=== PATIENT | male | born 1950 | race Caucasian/White ===

== ENCOUNTER 2023-03-25 14:17 | Outpatient (CLI) | payer MEDICARE, SELFPAY | END 2023-03-25 14:18 | disposition home or self-care (01) | PROVIDERS: PCP Family Medicine; Visit Provider Family Medicine | DX: Z00.00 Encounter for general adult medical examination without abnormal findings (principal); R53.83 Other fatigue; R05.9 Cough, unspecified; R41.3 Other amnesia; R42 Dizziness and giddiness; Z12.5 Encounter for screening for malignant neoplasm of prostate | CPT/HCPCS: 80053; 82607; 83880; 84153; 84443 ==

== ENCOUNTER 2023-04-04 09:51 | Outpatient (CLI) | payer MEDICARE, SELFPAY ==
--- NOTE | 2023-04-04 10:00 | CT_ITS ---
Final Report Patient: THERESA MARLEY Facility:?[facility] Patient ID:?[id number] Patient ID:?[id number]. Site :?[id number] Study:?CT Chest WITHOUT-04/04/2023 12:00:14 PM Ordering Physician:Tara Duong Final Report: Indication: Shortness of breath. Technique: CT chest without IV contrast with multiplanar reformats. Does lowering techniques were used. Comparison: None Findings: Heart is normal in size. No pericardial or pleural effusion. No enlarged axillary or mediastinal lymph nodes. Evaluation of hilar lymphadenopathy is limited due to lack of IV contrast. Central airways are patent. Bilateral subpleural reticular opacities are seen with mild cystic changes/honeycombing in the lung bases. There is mild lower lobe predominant bronchiectasis. 1 centimeter low-density lesion in segment 2 of the liver, indeterminate. Otherwise, visualized noncontrast appearance of the liver, spleen, gallbladder, pancreas, adrenals and upper kidneys within normal limits. No suspicious bony lesion. 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 Indeterminate 1 centimeter segment 2 liver lesion. Consider nonemergent MRI abdomen with contrast for further evaluation. Please note that all CT scans at this facility use dose modulation, iterative reconstruction, and/or weight-based dosing when appropriate to reduce radiation dose to as low as reasonably achievable. Dictated by Lul Walton MD @ 04/04/2023 12:14:33 PM (Electronic Signature)
== END 2023-04-04 09:52 | disposition home or self-care (01) ==
PROVIDERS: PCP Family Medicine; Visit Provider Family Medicine
DX: R06.02 Shortness of breath (principal); K76.9 Liver disease, unspecified; R05.9 Cough, unspecified
CPT/HCPCS: 71250

== ENCOUNTER 2023-04-14 11:20 | Inpatient (IN) | payer MEDICARE, SELFPAY ==
[2023-04-14] VITALS (42 sets, daily range): BP systolic 138–173; BP diastolic 79–108; PULSE 85–115; RESP 24–45; TEMP 36.4–37.3; O2SAT 65–95; BMI 27.8; BMI 28.5
--- NOTE | 2023-04-14 11:30 | ED.NURSE ---
Pt arrives ambulatory, in triage room was ~64% on room air with labored tachypneic breathing. Pt brought to RM 8, placed on 15L O2 Oxymask. MD Melgar and RT summoned to room for exam. Pt O2 sats recovered to ~96% on 15L O2 after several minutes. O2 titrated down to 10L, then 5L. Pt maintaining O2 sats ~93% on 5L Oxymask.
[2023-04-14 11:52] LABS: Basophils Absolute Auto 0.02 K/uL (0.00-0.30); Basophils Percent Auto 0.3 % (0.0-3.0); Eosinophils Absolute Auto 0.19 K/uL (0.00-0.50); Hematocrit 40.9 % (37.0-53.0); Hemoglobin* 13.5 gm/dL (13.5-17.5); Immature Granulocytes Abs Auto 0.01 K/uL (0.00-0.30); Immature Granulocytes Pct Auto 0.2 %; Lymphocytes Percent Auto 9.2 % (20-44); Mean Corpuscular HGB Conc 33 gm/dL (32-36); Mean Corpuscular Hemoglobin 31 pg (26-34); Mean Corpuscular Volume 94 fL (80-100); Monocytes Percent Auto 5.8 % (0.0-11.0); Neutrophils Percent Auto 81.5 % (42.0-72.0); Platelet Count* 239 K/uL (140-440); RDW Coefficient of Variation % 12.6 % (11.5-15.5); Red Blood Count 4.35 m/uL (4.30-5.90); White Blood Count* 6.39 K/uL (4.50-11.00)
[2023-04-14 11:54] LABS: Slide Review Reflex No
[2023-04-14 12:04] LABS: Chloride* 107 mmol/L (96-114); Potassium* 4.3 mmol/L (3.6-5.1); Sodium* 142 mmol/L (135-149)
--- NOTE | 2023-04-14 12:06 | ED.NURSE ---
Pt maintaining O2 sats ~94% on 5L oxymask. Pt switched to NC, titrated down to 3L O2.
[2023-04-14 12:07] LABS: Anion Gap 11 mEq/L (7-15); Blood Urea Nitrogen* 14 mg/dL (7-30); Calcium* 9.9 mg/dL (8.4-10.6); Carbon Dioxide* 24 mmol/L (20-32); Creatinine* 0.7 mg/dL (0.5-1.5); Estimated Glomerular Filt Rate 97 ml/min; Glucose* 152 mg/dL (60-115)
[2023-04-14 12:08] LABS: D Dimer Quantitative* 1.74 ug/ml (0.00-0.50)
[2023-04-14 12:17] LABS: NT Pro B Type NatriureticPept* 1230 pg/mL
[2023-04-14 12:18] LABS: Troponin, Point-of-Care* 0.05 ng/ml (0.01-0.04)
--- NOTE | 2023-04-14 12:20 | ED.NURSE ---
RT titrated pt down to 1L O2 NC.
[2023-04-14 12:26] LABS: ABG PCO2 32 mmHG (35-45); Base Excess ABG -1.6 mmol/L (-3.0-3.0); Carboxyhemoglobin* 2.4 % (0.0-5.0); HCO3 ABG 22 mmol/L (21-28); Oxygen Saturation ABG 92 % (92-100); PO2 ABG 59.8 mmHG (80-105); TCO2 ABG 20 mmol/l (21-30); pH ABG 7.45 (7.35-7.45)
--- NOTE | 2023-04-14 12:47 | ED.NURSE ---
Pt O2 sats ~84%. Titrated O2 up to 2L NC.
--- NOTE | 2023-04-14 12:55 | ED.NURSE ---
Pt O2 continuing to sat ~86% on 2L NC while at rest. O2 titrated up to 3L NC.
--- NOTE | 2023-04-14 12:59 | CRLHL7_ITS ---
For Patients: As a result of the Century Cures Act, medical imaging exams and procedure reports are released immediately into your electronic medical record. You may view this report before your referring provider. If you have questions, please contact your health care provider. INDICATION: Elevated D-dimer. Clinical signs and symptoms of an acute pulmonary embolus. COMPARISON: A noncontrast examination dated April 04, 2023 TECHNIQUE: : CT examination of the chest was performed with the uneventful intravenous administration of 95 cc of his severe 3 set while thin axial sections were obtained from above the apices of the lungs to the lung bases. Please note that all CT scans at this facility use dose modulation, iterative reconstruction, and/or weight-based dosing when appropriate to reduce radiation dose to as low as reasonably achievable. FINDINGS: : HEART and MEDIASTINUM: The heart is enlarged. There is no pericardial effusion. Mildly prominent mediastinal lymph nodes likely reactive. Atherosclerotic vascular calcifications and valvular calcifications. Enlarged pulmonary arteries probably due to pulmonary hypertension PULMONARY ARTERIAL CIRCULATION: Somewhat limited by motion but no indication of acute pulmonary embolus. LUNGS: Compared to the prior study, the lungs again show a background of significant interstitial fibrosis. This has a peripheral and basilar predominance and presents with abnormal reticular opacities and areas of traction bronchiectasis and bronchiolectasis. There is early honeycombing at the posterior bases. 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 A new finding since the prior examination is diffuse multifocal ground-glass. This is most likely due to an atypical inflammatory process or edema. Correlate clinically. PLEURAL SPACES: There is no pleural effusion, pneumothorax or pleural based mass. VISUALIZED UPPER ABDOMEN: Indeterminate hepatic lesion in the left lobe for which follow-up is recommended in the nonacute care setting. OSSEOUS STRUCTURES: Age-appropriate appearance. No acute fracture or destructive process. TUBES and LINES: None. IMPRESSION: 1. Somewhat limited by motion but there is no indication of acute pulmonary embolus. 2. Enlarged heart. Prominent mediastinal lymph nodes likely reactive. Enlarged central pulmonary arteries likely due to pulmonary hypertension. 3. Background of significant interstitial fibrosis as described above and was also present on April 04, 2023. 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 4. There is a new finding of significant diffuse patchy multifocal ground-glass opacification. The 2 most likely diagnoses are an atypical inflammatory process or edema. Correlate clinically. Normal pleural spaces. 5. Again noted is a small indeterminate lesion in the left lobe of the liver. This would best be evaluated by a contrast-enhanced CT or MRI. Please note that all CT scans at this facility use dose modulation, iterative reconstruction, and/or weight-based dosing when appropriate to reduce radiation dose to as low as reasonably achievable. Dictated by Riccardo Gotti MD @ 04/14/2023 3:08:12 PM (Electronically Signed)
--- NOTE | 2023-04-14 13:06 | ED.NURSE ---
O2 sats ~94% on 3L NC. Titrated down to 2L O2.
[2023-04-14 13:16] LABS: Troponin I* 0.05 ng/mL (0.01-0.04)
--- NOTE | 2023-04-14 13:35 | ED.NURSE ---
Pt O2 satting around 86% on 2L upon return from imaging. O2 titrated up to 4L NC.
--- NOTE | 2023-04-14 14:00 | ED.NURSE ---
Pt O2 sats ~93% on 4L. O2 titrated down to 2L.
[2023-04-14 14:01] LABS: PCR FLU A Negative PCR FLU A (Negative); PCR FLU B Negative PCR FLU B (Negative); PCR RSV Negative PCR RSV (Negative)
[2023-04-14 14:15] LABS: SARS PCR* Negative SARS-CoV-2 (Negative)
--- NOTE | 2023-04-14 14:22 | ED.NURSE ---
Pt brought to restroom in wheelchair. Upon return to bed, pt desatted to ~70% after exertion of getting into bed. O2 titrated up to 4L until pt O2 recovered to ~92% after a few minutes, then titrated back down to 2L.
--- NOTE | 2023-04-14 14:29 | RESP.RT ---
Patient is currently on 2L NC SATing 92%. He desaturated into the low 80s with activity. Patient states that he just started taking Combivent and is scheduled for a sleep study.
[2023-04-14 14:33] LABS: Troponin, Point-of-Care* 0.06 ng/ml (0.01-0.04)
--- NOTE | 2023-04-14 14:33 | ED.NURSE ---
Pt c/o onset of headache, posterior head pain rates /. Pt requesting ibuprofen. MD notified, verbal order for 600mg ibuprofen, med given to pt.
[2023-04-14] MEDS: IBUPROFEN 200 MG TABLET 600 MG PO (14:35)
[2023-04-14 14:53] LABS: Troponin I* 0.06 ng/mL (0.01-0.04)
--- NOTE | 2023-04-14 15:28 | ED_ITS ---
HPI - SOB/Dyspnea General Chief Complaint: Shortness of Breath/Dyspnea Stated Complaint: chest pain/trouble breathing 05/24 Time Seen by Provider: 04/14/23 11:28 History of Present Illness HPI Narrative: Patient is a 72-year-old gentleman who has had progressive shortness of breath the last several months. He recently established with Dr. Heath who did a chest x-ray noting diffuse airway changes consistent with bronchiolitis. She was placed on necrosis of cortical steroids and CT scan was ordered. The CT scan was done 10 days ago and has not been followed up upon. The CT showed diffuse likely idiopathic pulmonary fibrosis. Patient's shortness of breath has been persisting and he presented to the emergency room with oxygen saturations 65% extremely tachypneic. Patient had no knowledge of his CT findings. He states he has had no cough no sputum production no nausea no vomiting no weakness. He has otherwise been in his usual state of health. Review of his medical record indicates he has cognitive impairment carotid stenosis GERD obstructive sleep apnea and fatigue. Related Data Home Medications Medication Instructions Recorded Confirmed ibuprofen 200 mg capsule 600 mg PO Q6H PRN 03/25/23 04/14/23 Previous Rx's Medication Instructions Recorded ipratropium 20 mcg-albuterol 100 1 puff inhalation QID #4 grams 03/25/23 mcg/actuation mist for inhalation (Combivent Respimat) prednisone 20 mg tablet 20 mg PO .COMPLEX #20 tabs 03/25/23 Allergies Allergy/AdvReac Type Severity Reaction Status Date / Time No Known Drug Allergies Allergy Verified 04/14/23 11:37 Review of Systems Status of ROS: Reports: 10 or more systems reviewed and unremarkable except as noted in History and below [facility] Medical History Pulmonary fibrosis ?J84.10 - Pulmonary fibrosis, unspecified (ICD-10) Injury of nasal sinus ?S09.92XA - Unspecified injury of nose, initial encounter (ICD-10) Arthritis of knee ?M17.10 - Unilateral primary osteoarthritis, unspecified knee (ICD-10) Hx of urinary frequency ?Z87.898 - Personal history of other specified conditions (ICD-10) Change in bowel habits ?R19.4 - Change in bowel habit (ICD-10) Hyperlipidemia ?E78.5 - Hyperlipidemia, unspecified (ICD-10) Hx of syncope ?Z87.898 - Personal history of other specified conditions (ICD-10) Carotid artery narrowing ?I65.29 - Occlusion and stenosis of unspecified carotid artery (ICD-10) GERD (gastroesophageal reflux disease) ?K21.9 - Gastro-esophageal reflux disease without esophagitis (ICD-10) DAVIS (obstructive sleep apnea) ?G47.33 - Obstructive sleep apnea (adult) (pediatric) (ICD-10) Lung interstitial disease ?J84.9 - Interstitial pulmonary disease, unspecified (ICD-10) Cough ?R05.9 - Cough, unspecified (ICD-10) Surgical History H/O sinus surgery ?Z98.890 - Other specified postprocedural states (ICD-10) Hx of total knee arthroplasty ?Z96.659 - Presence of unspecified artificial knee joint (ICD-10) History of arthroplasty of left shoulder ?Z96.612 - Presence of left artificial shoulder joint (ICD-10) Family History Father Stroke Mother Myocardial infarction Diabetes Coronary artery disease Brother Sudden Sister Stroke Diabetes Brother Coronary artery disease Myocardial infarction Social History Smoking Status: Former smoker How often do you have a drink containing alcohol: 4 or more times a week How many standard drinks containing alcohol do you have on a typical day: 1 or 2 How often do you have six or more drinks on one occasion: Never AUDIT-C Alcohol total score: 4 Non-prescribed substance use: denies use Exam Narrative: Exam Narrative: EXAM after the patient was stabilized with high-flow oxygen GENERAL: Patient appears comfortable and well. Breathing oxygen at 3 L per nasal cannula. EYES: No scleral icterus. LYMPH: No supraclavicular or cervical lymphadenopathy. SKIN: Visible skin seen during exam normal or with benign process only. EXT: No dependent lower extremity pedal edema. HEART: Distant heart tones noted. LUNGS: Scattered crackles bilaterally. ABD: Soft, non tender, non distended. PSYCH: Good eye contact, speech is not pressured. Neurologic cranial nerves 2-12 grossly intact. Const: Vital Signs, click to edit/add: Vital Signs - 24 hr 04/14/23 11:30 04/14/23 11:30 04/14/23 11:32 Temperature 97.6 F Pulse Rate Pulse Rate [Bilate ral] 97 Respiratory Rate 24 Blood Pressure Blood Pressure [Le ft Upper Arm] 165/83 H Pulse Oximetry 94 94 65 L Oxygen Delivery Me thod OxyMask Room Air Oxygen Flow Rate 15 Fraction of Inspir ed Oxygen 04/14/23 11:38 04/14/23 11:43 04/14/23 11:45 Temperature Pulse Rate 97 Pulse Rate [Bilate ral] Respiratory Rate 40 H Blood Pressure Blood Pressure [Le ft Upper Arm] Pulse Oximetry 94 92 Oxygen Delivery Me thod OxyMask OxyMask Oxygen Flow Rate 4 5 Fraction of Inspir ed Oxygen 04/14/23 11:45 04/14/23 12:01 04/14/23 12:02 Temperature Pulse Rate 100 98 100 Pulse Rate [Bilate ral] Respiratory Rate Blood Pressure 144/88 H Blood Pressure [Le ft Upper Arm] Pulse Oximetry 94 94 91 Oxygen Delivery Me thod OxyMask Nasal Cannula Nasal Cannula Oxygen Flow Rate 5 3 3 Fraction of Inspir ed Oxygen 04/14/23 12:15 04/14/23 12:15 04/14/23 12:30 Temperature Pulse Rate 98 96 Pulse Rate [Bilate ral] Respiratory Rate 45 H Blood Pressure Blood Pressure [Le ft Upper Arm] Pulse Oximetry 91 89 Oxygen Delivery Me thod Nasal Cannula Nasal Cannula Oxygen Flow Rate 3 1 Fraction of Inspir ed Oxygen 04/14/23 12:30 04/14/23 12:32 04/14/23 12:33 Temperature Pulse Rate 91 91 Pulse Rate [Bilate ral] Respiratory Rate 35 H Blood Pressure 138/85 Blood Pressure [Le ft Upper Arm] Pulse Oximetry 89 89 Oxygen Delivery Me thod Nasal Cannula Nasal Cannula Oxygen Flow Rate 1 1 Fraction of Inspir ed Oxygen 04/14/23 12:35 04/14/23 12:45 04/14/23 12:45 Temperature Pulse Rate 93 Pulse Rate [Bilate ral] Respiratory Rate 40 H Blood Pressure Blood Pressure [Le ft Upper Arm] Pulse Oximetry 88 Oxygen Delivery Me thod Nasal Cannula Nasal Cannula Oxygen Flow Rate 1 Fraction of Inspir ed Oxygen 0.24 04/14/23 13:00 04/14/23 13:01 04/14/23 13:02 Temperature Pulse Rate 89 89 90 Pulse Rate [Bilate ral] Respiratory Rate Blood Pressure 147/92 H Blood Pressure [Le ft Upper Arm] Pulse Oximetry 93 93 92 Oxygen Delivery Me thod Nasal Cannula Nasal Cannula Nasal Cannula Oxygen Flow Rate 3 3 2 Fraction of Inspir ed Oxygen 04/14/23 13:10 04/14/23 13:31 04/14/23 13:33 Temperature Pulse Rate 107 H 99 Pulse Rate [Bilate ral] Respiratory Rate 40 H Blood Pressure 147/82 H Blood Pressure [Le ft Upper Arm] Pulse Oximetry 86 L 87 L Oxygen Delivery Me thod Nasal Cannula Nasal Cannula Oxygen Flow Rate 2 4 Fraction of Inspir ed Oxygen 04/14/23 13:45 04/14/23 14:00 04/14/23 14:02 Temperature Pulse Rate 90 93 91 Pulse Rate [Bilate ral] Respiratory Rate Blood Pressure 151/87 H Blood Pressure [Le ft Upper Arm] Pulse Oximetry 92 90 90 Oxygen Delivery Me thod Nasal Cannula Nasal Cannula Nasal Cannula Oxygen Flow Rate 4 2 2 Fraction of Inspir ed Oxygen 04/14/23 14:03 04/14/23 14:07 04/14/23 14:18 Temperature Pulse Rate 91 115 H Pulse Rate [Bilate ral] Respiratory Rate 40 H Blood Pressure Blood Pressure [Le ft Upper Arm] Pulse Oximetry 90 69 L Oxygen Delivery Me thod Nasal Cannula Nasal Cannula Oxygen Flow Rate 2 4 Fraction of Inspir ed Oxygen 04/14/23 14:30 04/14/23 14:33 04/14/23 14:34 Temperature Pulse Rate 92 92 92 Pulse Rate [Bilate ral] Respiratory Rate Blood Pressure 140/84 H Blood Pressure [Le ft Upper Arm] Pulse Oximetry 89 90 89 Oxygen Delivery Me thod Nasal Cannula Nasal Cannula Nasal Cannula Oxygen Flow Rate 2 2 2 Fraction of Inspir ed Oxygen 04/14/23 14:45 04/14/23 15:00 04/14/23 15:01 Temperature Pulse Rate 93 91 85 Pulse Rate [Bilate ral] Respiratory Rate Blood Pressure 150/93 H Blood Pressure [Le ft Upper Arm] Pulse Oximetry 91 91 91 Oxygen Delivery Me thod Nasal Cannula Nasal Cannula Nasal Cannula Oxygen Flow Rate 2 2 2 Fraction of Inspir ed Oxygen 04/14/23 15:02 Temperature Pulse Rate Pulse Rate [Bilate ral] Respiratory Rate 40 H Blood Pressure Blood Pressure [Le ft Upper Arm] Pulse Oximetry Oxygen Delivery Me thod Oxygen Flow Rate Fraction of Inspir ed Oxygen Course Course Hospital Course: Patient was initially stabilized on a high-flow oxygen. I did review his previous chest x-ray and CT scan is clear that he has a pulmonary fibrosis causing his symptoms. This point I did send off CBC troponin which is mildly elevated at 0.06 D-dimer which is elevated and electrolytes. Because of the elevated D-dimer we did do a CT of the chest PE study and no PEs seen. Pulmonary fibrosis is noted with new ground-glass opacification. There is also evidence of possible pulmonary hypertension. Based on his clinical presentation and need for 3 L of oxygen patient will be admitted for further evaluation and treatment. I did again speak with Cardiology and they did recommend no change in medical management unless the troponin trends up. Consultations Consultation #1: Cardiology Poli Hendrickson Vital Signs Vital signs: Initial Vital Signs Respiratory Effort Spontaneous, Labored, Short of Breath 04/14/23 11:30 Respiratory Depth Shallow 04/14/23 11:30 Respiratory Pattern Tachypnea, Short of Breath 04/14/23 11:30 Pulse Oximetry 94 04/14/23 11:30 Oxygen Delivery Method OxyMask 04/14/23 11:30 Oxygen Flow Rate 15 04/14/23 11:30 Vital Signs Pulse Oximetry 94 04/14/23 11:30 Oxygen Delivery Method OxyMask 04/14/23 11:30 Oxygen Flow Rate 15 04/14/23 11:30 Temperature 97.6 F 04/14/23 11:32 Pulse Rate 85 04/14/23 15:01 Respiratory Rate 40 H 04/14/23 15:02 Blood Pressure 150/93 H 04/14/23 15:01 Pulse Oximetry 91 04/14/23 15:01 Oxygen Delivery Method Nasal Cannula 04/14/23 15:01 Oxygen Flow Rate 2 04/14/23 15:01 Fraction of Inspired Oxygen 0.24 04/14/23 12:35 MDM - SOB/Dyspnea MDM Narrative Medical decision making narrative: As above in hospital course. Differential diagnosis included pneumonia pulmonary embolism pulmonary fibrosis pleural effusion congestive heart failure. Lab Data Labs: Lab Results 04/14/23 04/14/23 04/14/23 Range/Units 11:30 12:20 13:05 WBC 6.39 (4.50-11.00) K/uL RBC 4.35 (4.30-5.90) m/uL Hgb 13.5 (13.5-17.5) gm/dL Hct 40.9 (37.0-53.0) % MCV 94 (80-100) fL MCH 31 (26-34) pg MCHC 33 (32-36) gm/dL RDW Coeff of Robert 12.6 (11.5-15.5) % Plt Count 239 (140-440) K/uL Neut % (Auto) 81.5 H (42.0-72.0) % Lymph % (Auto) 9.2 L (20-44) % [place] % (Auto) 5.8 (0.0-11.0) % Eos % (Auto) 3.0 (0.0-7.0) % Baso % (Auto) 0.3 (0.0-3.0) % Neut # (Auto) 5.20 (1.7-7.0) K/uL Lymph # (Auto) 0.60 L (0.90-2.90) K/uL [place] # (Auto) 0.40 (0.00-0.90) K/UL Eos # (Auto) 0.19 (0.00-0.50) K/uL Baso # (Auto) 0.02 (0.00-0.30) K/uL Abs Immat Gran (auto) 0.01 (0.00-0.30) K/uL Imm/Tot Granulo (auto) 0.2 % D-Dimer Quant (PE/DVT) 1.74 H (0.00-0.50) ug/ml ABG pH 7.45 (7.35-7.45) ABG pCO2 32 L (35-45) mmHG ABG pO2 59.8 L (80-105) mmHG ABG HCO3 22 (21-28) mmol/L ABG Total CO2 20 L (21-30) mmol/l ABG O2 Saturation 92 (92-100) % ABG Base Excess -1.6 (-3.0-3.0) mmol/L Carboxyhemoglobin 2.4 (0.0-5.0) % Sodium 142 (135-149) mmol/L Potassium 4.3 (3.6-5.1) mmol/L Chloride 107 (96-114) mmol/L Carbon Dioxide 24 (20-32) mmol/L Anion Gap 11 (7-15) mEq/L BUN 14 (7-30) mg/dL Creatinine 0.7 (0.5-1.5) mg/dL Estimated Creat Clear 62.70 Estimated GFR 97 ml/min Glucose 152 H (60-115) mg/dL Calcium 9.9 (8.4-10.6) mg/dL Troponin I 0.05 H (0.01-0.04) ng/mL NT-Pro-B Natriuret Pep 1230 pg/mL SARS-CoV-2 (PCR) Negative SARS-CoV-2 (Negative) Influenza Type A (PCR) Negative PCR FLU A (Negative) Influenza Type B (PCR) Negative PCR FLU B (Negative) RSV (PCR) Negative PCR RSV (Negative) POC Troponin I 0.05 H (0.01-0.04) ng/ml 04/14/23 Range/Units 14:04 WBC (4.50-11.00) K/uL RBC (4.30-5.90) m/uL Hgb (13.5-17.5) gm/dL Hct (37.0-53.0) % MCV (80-100) fL MCH (26-34) pg MCHC (32-36) gm/dL RDW Coeff of Robert (11.5-15.5) % Plt Count (140-440) K/uL Neut % (Auto) (42.0-72.0) % Lymph % (Auto) (20-44) % [place] % (Auto) (0.0-11.0) % Eos % (Auto) (0.0-7.0) % Baso % (Auto) (0.0-3.0) % Neut # (Auto) (1.7-7.0) K/uL Lymph # (Auto) (0.90-2.90) K/uL [place] # (Auto) (0.00-0.90) K/UL Eos # (Auto) (0.00-0.50) K/uL Baso # (Auto) (0.00-0.30) K/uL Abs Immat Gran (auto) (0.00-0.30) K/uL Imm/Tot Granulo (auto) % D-Dimer Quant (PE/DVT) (0.00-0.50) ug/ml ABG pH (7.35-7.45) ABG pCO2 (35-45) mmHG ABG pO2 (80-105) mmHG ABG HCO3 (21-28) mmol/L ABG Total CO2 (21-30) mmol/l ABG O2 Saturation (92-100) % ABG Base Excess (-3.0-3.0) mmol/L Carboxyhemoglobin (0.0-5.0) % Sodium (135-149) mmol/L Potassium (3.6-5.1) mmol/L Chloride (96-114) mmol/L Carbon Dioxide (20-32) mmol/L Anion Gap (7-15) mEq/L BUN (7-30) mg/dL Creatinine (0.5-1.5) mg/dL Estimated Creat Clear Estimated GFR ml/min Glucose (60-115) mg/dL Calcium (8.4-10.6) mg/dL Troponin I 0.06 H* (0.01-0.04) ng/mL NT-Pro-B Natriuret Pep pg/mL SARS-CoV-2 (PCR) (Negative) Influenza Type A (PCR) (Negative) Influenza Type B (PCR) (Negative) RSV (PCR) (Negative) POC Troponin I 0.06 H (0.01-0.04) ng/ml Discharge Plan Discharge Clinical Impression: Pulmonary fibrosis Patient Disposition: Admitted As Observation Condition: Stable Activity Level: Other Discharge Diet: Other Prescriptions: No Action ibuprofen 200 mg capsule 600 mg PO Q6H PRN Combivent Respimat 20-100 mcg/actuation mist 1 puff inhalation QID Qty: 4 1RF Rx Instructions: space evenly during waking hours prednisone 20 mg tablet 20 mg PO .COMPLEX Qty: 20 0RF Rx Instructions: 20 mg orally; 60 MG PO DAYS 1 -3, 40 MG DAYS 4-6, 20 MG DAYS 7-9 Follow Up/Referrals: Ad Heath MD [Primary Care Provider] - Stand Alone [facility] Info Inst[facility]
--- NOTE | 2023-04-14 15:30 | ED.NURSE ---
Pt repositioned in bed for comfort.
--- NOTE | 2023-04-14 18:00 | PM.IMHP1 ---
Hospitalist- H&P: HPI History of Present Illness Date Seen: 04/14/23 Chief complaint: chest pain/trouble breathing 05/24 Narrative: ADMISSION HISTORY AND PHYSICAL - HOSPITALIST Chief Complaint: I am super short of breath. I have not rested all night. I can not find a comfortable position. HPI: 72-year-old Juancho presents with acute respiratory distress. He stated late afternoon yesterday, 04/13/2023, started to feel even more short of breath than his normal baseline. He said he could not find a comfortable position last night. He felt mildly anxious, he was coughing. He denies fevers rigors or chills. He denies diarrhea. Denies rash. He denies sick contacts. Apparently there was a longstanding history of pulmonary fibrosis for which he doctor at the [facility] from about 2016 to 2020. Unfortunately those records are unavailable for me to review at this time. He states they told him there was nothing to do and he stopped doctoring for a couple of years before re-engage in with Dr. Ad Heath here in the [place] system. He just recently had a physical with this physician. Chest x-ray revealed some concerns so Ad ordered a chest CT. This showed markedly severe interstitial lung disease and Ad referred Juancho to pulmonary medicine in the [facility]. He has a sleep study and a clinic appointment in the coming weeks. He takes no medications. Robson started him on Levaquin, Mucinex, prednisone. He apparently has a history of DAVIS that was not treated with CPAP, GERD. ER COURSE: CTA done tonight is compared to the CT of his chest done a few days ago. There is new ground-glass opacities noted. He was hypoxic and titrated from an OxyMask down to 2-3 L per nasal cannula. Labs were also completed. CODE STATUS: Full code EMERGENCY CONTACT PLAN: Marj Rojas Rel to Pat [phone] Cell Phone I've updated the PFSH, medications and allergies in the Expanse tabs. INVESTIGATIONS: LABS/MICRO/ECG/IMAGING Blood pressure 151/89. Pulse 89. Respirations 30-40. Temp 99.1?. O2 sats 90% on 2.5 L per nasal cannula. Weight is 84.9 kilos, BMI is 28.5 CBC is reassuring tonight in the emergency room. No white blood cell count. Hemoglobin normal. Platelet count normal. D-dimer was elevated at 1.74 Blood gas revealed a normal pH. A lower than expected CO2 at 32. electrolytes very reassuring. Normal renal function. Normal electrolytes. Glucose 152. He does have an elevated troponin, mildly, 0.05 and 0.06 Triple respiratory nasal swab negative. CT chest with contrast (CTA) 1. Somewhat limited by motion but there is no indication of acute pulmonary embolus. 2. Enlarged heart. Prominent mediastinal lymph nodes likely reactive. Enlarged central pulmonary arteries likely due to pulmonary hypertension. 3. Background of significant interstitial fibrosis as described above and was also present on April 04, 2023. 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 4. There is a new finding of significant diffuse patchy multifocal ground-glass opacification. The 2 most likely diagnoses are an atypical inflammatory process or edema. Correlate clinically. Normal pleural spaces. 5. Again noted is a small indeterminate lesion in the left lobe of the liver. This would best be evaluated by a contrast-enhanced CT or MRI. Echo done at admission: Final Impressions: 1. Technically limited exam. 2. Normal left ventricular size, normal wall thickness, low normal global systolic function, calculated EF of 54 %. 3. Right ventricular cavity size is moderately enlarged, global systolic RV function is moderately reduced. 4. The aortic valve is trileaflet and sclerotic, no stenosis and mild regurgitation. 5. Mildly increased estimated pulmonary pressures by tricuspid regurgitation velocity and right atrial pressure (40 mmHg plus RAP which is estimated to be low normal based on IVC geometry). REVIEW OF SYSTEMS: 12-point ROS completed with patient and negative unless otherwise stated in HPI or below. PHYSICAL EXAM: CONSTITUTIONAL: Conversive, good historian. A/O. Knows setting and context. He appears mildly breathless, especially with any exertion. VITAL SIGNS: see record. HEENT: Normocephalic, atraumatic. PERRL, EOMI, conjunctivae pink, no scleral icterus. Ears and nose externally normal. Pharynx normal. NECK: No JVD. No carotid bruit, no thyromegaly, no adenopathy. CHEST: Crackles bilaterally throughout the lung cervantes HEART: S1 and S2 normal. No harsh murmurs. Edema minimal MUSCULOSKELETAL: No gross joint deformity or swelling. NEURO: Cranial nerves intact. Grossly intact. No asymmetric findings. SKIN: No rashes, petechiae, concerning changes PSYCHIATRIC: Euthymic. ADMIT TO MEDSURG: FLOOR CARE DVT: Lovenox GI: PO intake Time spent: Today I spent 75 minutes seeing the patient, discussing the patient with ER staff, reviewing Expanse and EPIC notes/diagnostics, discussing the care plan with our care time that includes social work, PT/OT, pharmacy, RT, mcc and documenting my impressions and plan in the medical record. [facility] Medical History (Updated 04/14/23 @ 18:53 by Anahy Jim MD) Injury of nasal sinus ?S09.92XA - Unspecified injury of nose, initial encounter (ICD-10) Arthritis of knee ?M17.10 - Unilateral primary osteoarthritis, unspecified knee (ICD-10) Change in bowel habits ?R19.4 - Change in bowel habit (ICD-10) Hyperlipidemia ?E78.5 - Hyperlipidemia, unspecified (ICD-10) Hx of syncope ?Z87.898 - Personal history of other specified conditions (ICD-10) Carotid artery narrowing ?I65.29 - Occlusion and stenosis of unspecified carotid artery (ICD-10) GERD (gastroesophageal reflux disease) ?K21.9 - Gastro-esophageal reflux disease without esophagitis (ICD-10) DAVIS (obstructive sleep apnea) ?G47.33 - Obstructive sleep apnea (adult) (pediatric) (ICD-10) Surgical History (Updated 04/14/23 @ 18:40 by Anahy Jim MD) Hx of total knee arthroplasty ?Z96.659 - Presence of unspecified artificial knee joint (ICD-10) History of arthroplasty of left shoulder ?Z96.612 - Presence of left artificial shoulder joint (ICD-10) Family History Father Stroke Mother Myocardial infarction Diabetes Coronary artery disease Brother Sudden Sister Stroke Diabetes Brother Coronary artery disease Myocardial infarction Social History Smoking Status: Former smoker How often do you have a drink containing alcohol: 4 or more times a week How many standard drinks containing alcohol do you have on a typical day: 1 or 2 How often do you have six or more drinks on one occasion: Never AUDIT-C Alcohol total score: 4 Non-prescribed substance use: denies use Meds Home Medications and Allergies Home Medications Medication Instructions Recorded Confirmed Type ibuprofen 200 mg capsule 600 mg PO Q6H PRN 03/25/23 04/14/23 History Allergies Allergy/AdvReac Type Severity Reaction Status Date / Time No Known Drug Allergies Allergy Verified 04/14/23 11:37 Exam Const: Vital Signs, click to edit/add: Vital Signs - 24 hr 04/14/23 11:30 04/14/23 11:30 04/14/23 11:32 Temperature 97.6 F Pulse Rate Pulse Rate [Bilate ral] 97 Respiratory Rate 24 Blood Pressure Blood Pressure [Le ft Upper Arm] 165/83 H Pulse Oximetry 94 94 65 L Oxygen Delivery Me thod OxyMask Room Air Oxygen Flow Rate 15 Fraction of Inspir ed Oxygen 04/14/23 11:38 04/14/23 11:43 04/14/23 11:45 Temperature Pulse Rate 97 Pulse Rate [Bilate ral] Respiratory Rate 40 H Blood Pressure Blood Pressure [Le ft Upper Arm] Pulse Oximetry 94 92 Oxygen Delivery Me thod OxyMask OxyMask Oxygen Flow Rate 4 5 Fraction of Inspir ed Oxygen 04/14/23 11:45 04/14/23 12:01 04/14/23 12:02 Temperature Pulse Rate 100 98 100 Pulse Rate [Bilate ral] Respiratory Rate Blood Pressure 144/88 H Blood Pressure [Le ft Upper Arm] Pulse Oximetry 94 94 91 Oxygen Delivery Me thod OxyMask Nasal Cannula Nasal Cannula Oxygen Flow Rate 5 3 3 Fraction of Inspir ed Oxygen 04/14/23 12:15 04/14/23 12:15 04/14/23 12:30 Temperature Pulse Rate 98 96 Pulse Rate [Bilate ral] Respiratory Rate 45 H Blood Pressure Blood Pressure [Le ft Upper Arm] Pulse Oximetry 91 89 Oxygen Delivery Me thod Nasal Cannula Nasal Cannula Oxygen Flow Rate 3 1 Fraction of Inspir ed Oxygen 04/14/23 12:30 04/14/23 12:32 04/14/23 12:33 Temperature Pulse Rate 91 91 Pulse Rate [Bilate ral] Respiratory Rate 35 H Blood Pressure 138/85 Blood Pressure [Le ft Upper Arm] Pulse Oximetry 89 89 Oxygen Delivery Me thod Nasal Cannula Nasal Cannula Oxygen Flow Rate 1 1 Fraction of Inspir ed Oxygen 04/14/23 12:35 04/14/23 12:45 04/14/23 12:45 Temperature Pulse Rate 93 Pulse Rate [Bilate ral] Respiratory Rate 40 H Blood Pressure Blood Pressure [Le ft Upper Arm] Pulse Oximetry 88 Oxygen Delivery Me thod Nasal Cannula Nasal Cannula Oxygen Flow Rate 1 Fraction of Inspir ed Oxygen 0.24 04/14/23 13:00 04/14/23 13:01 04/14/23 13:02 Temperature Pulse Rate 89 89 90 Pulse Rate [Bilate ral] Respiratory Rate Blood Pressure 147/92 H Blood Pressure [Le ft Upper Arm] Pulse Oximetry 93 93 92 Oxygen Delivery Me thod Nasal Cannula Nasal Cannula Nasal Cannula Oxygen Flow Rate 3 3 2 Fraction of Inspir ed Oxygen 04/14/23 13:10 04/14/23 13:31 04/14/23 13:33 Temperature Pulse Rate 107 H 99 Pulse Rate [Bilate ral] Respiratory Rate 40 H Blood Pressure 147/82 H Blood Pressure [Le ft Upper Arm] Pulse Oximetry 86 L 87 L Oxygen Delivery Me thod Nasal Cannula Nasal Cannula Oxygen Flow Rate 2 4 Fraction of Inspir ed Oxygen 04/14/23 13:45 04/14/23 14:00 04/14/23 14:02 Temperature Pulse Rate 90 93 91 Pulse Rate [Bilate ral] Respiratory Rate Blood Pressure 151/87 H Blood Pressure [Le ft Upper Arm] Pulse Oximetry 92 90 90 Oxygen Delivery Me thod Nasal Cannula Nasal Cannula Nasal Cannula Oxygen Flow Rate 4 2 2 Fraction of Inspir ed Oxygen 04/14/23 14:03 04/14/23 14:07 04/14/23 14:18 Temperature Pulse Rate 91 115 H Pulse Rate [Bilate ral] Respiratory Rate 40 H Blood Pressure Blood Pressure [Le ft Upper Arm] Pulse Oximetry 90 69 L Oxygen Delivery Me thod Nasal Cannula Nasal Cannula Oxygen Flow Rate 2 4 Fraction of Inspir ed Oxygen 04/14/23 14:30 04/14/23 14:33 04/14/23 14:34 Temperature Pulse Rate 92 92 92 Pulse Rate [Bilate ral] Respiratory Rate Blood Pressure 140/84 H Blood Pressure [Le ft Upper Arm] Pulse Oximetry 89 90 89 Oxygen Delivery Me thod Nasal Cannula Nasal Cannula Nasal Cannula Oxygen Flow Rate 2 2 2 Fraction of Inspir ed Oxygen 04/14/23 14:45 04/14/23 15:00 04/14/23 15:01 Temperature Pulse Rate 93 91 85 Pulse Rate [Bilate ral] Respiratory Rate Blood Pressure 150/93 H Blood Pressure [Le ft Upper Arm] Pulse Oximetry 91 91 91 Oxygen Delivery Me thod Nasal Cannula Nasal Cannula Nasal Cannula Oxygen Flow Rate 2 2 2 Fraction of Inspir ed Oxygen 04/14/23 15:02 04/14/23 15:02 04/14/23 15:15 Temperature Pulse Rate 93 94 Pulse Rate [Bilate ral] Respiratory Rate 40 H Blood Pressure Blood Pressure [Le ft Upper Arm] Pulse Oximetry 92 89 Oxygen Delivery Me thod Nasal Cannula Nasal Cannula Oxygen Flow Rate 2 2 Fraction of Inspir ed Oxygen 04/14/23 15:30 04/14/23 15:32 04/14/23 15:45 Temperature Pulse Rate 89 91 94 Pulse Rate [Bilate ral] Respiratory Rate Blood Pressure 173/108 H Blood Pressure [Le ft Upper Arm] Pulse Oximetry 88 90 90 Oxygen Delivery Me thod Nasal Cannula Nasal Cannula Nasal Cannula Oxygen Flow Rate 2 2 2 Fraction of Inspir ed Oxygen 04/14/23 16:11 Temperature Pulse Rate Pulse Rate [Bilate ral] Respiratory Rate 42 H Blood Pressure Blood Pressure [Le ft Upper Arm] Pulse Oximetry Oxygen Delivery Me thod Oxygen Flow Rate Fraction of Inspir ed Oxygen Hospitalist - H&P: Result Labs Labs: Short CBC 04/14/23 Range/Units 11:30 WBC 6.39 (4.50-11.00) K/uL Hgb 13.5 (13.5-17.5) gm/dL Hct 40.9 (37.0-53.0) % Plt Count 239 (140-440) K/uL BMP 04/14/23 11:30 Sodium 142 Potassium 4.3 Chloride 107 Carbon Dioxide 24 BUN 14 Creatinine 0.7 Glucose 152 H Calcium 9.9 Cardiac Enzymes 04/14/23 04/14/23 Range/Units 11:30 14:04 Troponin I 0.05 H 0.06 H* (0.01-0.04) ng/mL Assessment and Plan Assessment and plan (1) Acute respiratory failure, unspecified whether with hypoxia or hypercapnia: Problem comment: -I have asked for medical records from the [facility] -I spoke with pulmonary medicine curbside: No steroids tonight. Cover with broad-spectrum antibiotics and respiratory therapy. Collect cultures. Wean oxygen to keep sats around 90%. 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 There are certainly medical records the [facility] that would likely help to understand his severity of disease and previous testing. Those are being requested. Status: Acute (3) DAVIS (obstructive sleep apnea): Problem comment: Does not use a CPAP, he said his last sleep study did not indicate a need for this. Going to try CPAP tonight for his comfort. 10 cm of water pressure. He does have a sleep study scheduled. Status: Acute (4) Memory loss: Problem comment: -patient is a lot a word-finding issues. He apparently reported that to his new PCP. May be related to hypoxia. Noted. Status: Acute
[2023-04-14] MEDS: AZITHROMYCIN 500 MG in 0.9 % SODIUM CHLORIDE 250 ml 250 ML 255 MG IVPB (18:21)
[2023-04-14] MEDS: FUROSEMIDE 10 MG/ML inj 80 MG IVP (18:21)
[2023-04-14 19:12] LABS: C Reactive Protein* 7.9 mg/dL (0.5-1.0)
[2023-04-14 19:27] LABS: Procalcitonin* 0.07 ng/mL (<0.50)
[2023-04-14] MEDS: PIPERACILLIN/TAZOBACTAM 3.375 GM in 0.9 % SODIUM CHLORIDE Mini-bag 100 ML IVPB (19:40)
[2023-04-14] MEDS: SODIUM CHLORIDE 0.9 % (FLUSH) 10 ML SYRINGE 5 ML IVF (21:08)
[2023-04-14] MEDS: IBUPROFEN 600 MG TABLET PO (21:08)
[2023-04-15] MEDS: ACETAMINOPHEN 325 MG TABLET PO ×2 (00:40→09:22)
[2023-04-15] MEDS: OXYCODONE 5 MG TABLET PO (00:40)
[2023-04-15] MEDS: PIPERACILLIN/TAZOBACTAM 3.375 GM in 0.9 % SODIUM CHLORIDE Mini-bag 100 ML IVPB ×3 (00:40→14:12)
[2023-04-15 02:42] VITALS: BP 114/68; PULSE 84; RESP 28; TEMP 36.8; O2SAT 92
--- NOTE | 2023-04-15 06:18 | PC.NURSE ---
[id number] Pt slept fair during night, c/o headache, relief with prn tylenol/oxy and able to sleep after. Required 2-4 LPM O2 oxymask to maintain sats at rest, Pt desats to 70's with activity including standing at bedside to use urinal. occasionally pt is dizzy after activity, relief with laying back down and taking deep breaths.
[2023-04-15 06:38] LABS: HCO3 VBG 28 mmol/L (21-28); PCO2 VBG 40 mmHG (40-50); PO2 VBG 40.2 mmHG (25-47); pH VBG 7.453 (7.32-7.43)
[2023-04-15 06:43] LABS: Hematocrit 38.1 % (37.0-53.0); Hemoglobin* 12.9 gm/dL (13.5-17.5); Mean Corpuscular HGB Conc 34 gm/dL (32-36); Mean Corpuscular Hemoglobin 31 pg (26-34); Mean Corpuscular Volume 92 fL (80-100); Platelet Count* 222 K/uL (140-440); Red Blood Count 4.14 m/uL (4.30-5.90); White Blood Count* 5.86 K/uL (4.50-11.00)
[2023-04-15 06:49] LABS: Slide Review Reflex No
[2023-04-15] MEDS: IBUPROFEN 600 MG TABLET PO (06:56)
[2023-04-15 07:00] VITALS: BP 121/71; PULSE 85; PULSE 86; RESP 22; TEMP 36.5; O2SAT 93
[2023-04-15 07:03] LABS: Albumin* 3.9 g/dL (3.3-5.0); Chloride* 101 mmol/L (96-114); Sodium* 138 mmol/L (135-149)
[2023-04-15 07:04] LABS: Potassium* 3.8 mmol/L (3.6-5.1)
[2023-04-15 07:06] LABS: Alkaline Phosphatase* 93 U/L (40-150); Anion Gap 9 mEq/L (7-15); Aspartate Amino Transferase* 58 U/L (12-35); Bilirubin Total* 1.2 mg/dL (0.1-1.5); Carbon Dioxide* 28 mmol/L (20-32); Estimated Glomerular Filt Rate 79 ml/min; Total Protein* 7.5 g/dL (6.0-8.3)
[2023-04-15 07:07] LABS: Alanine Aminotransferase* 46 U/L (4-50); Blood Urea Nitrogen* 21 mg/dL (7-30); Calcium* 9.1 mg/dL (8.4-10.6); Glucose* 115 mg/dL (60-115); Magnesium* 1.6 mg/dL (1.5-2.6)
[2023-04-15 07:08] LABS: INR 1.17 (0.91-1.10); Prothrombin Time 15.6 Seconds
[2023-04-15 07:14] LABS: NT Pro B Type NatriureticPept* 1300 pg/mL
[2023-04-15 07:16] LABS: Troponin I* 0.04 ng/mL (0.01-0.04)
[2023-04-15 07:21] LABS: Procalcitonin* 0.12 ng/mL (<0.50)
[2023-04-15 10:59] VITALS: O2SAT 74; O2SAT 86; O2SAT 90
--- NOTE | 2023-04-15 11:59 | PM.DS1 ---
DS: Providers Provider Date Seen: 04/15/23 Date of admission: 04/14/23 17:52 Primary care physician: Ad Heath MD Admitting Clinician: Anahy Jim MD Attending Physician on discharge: Anahy Jim MD Date of Discharge: 04/15/23 DS: Diagnosis Discharge Diagnosis (1) Respiratory failure with hypoxia: Status: Acute Problem details: Subacute on chronic progressive hypoxic respiratory failure due to pulmonary fibrosis. (2) Pulmonary fibrosis: Status: Acute Problem details: Refer to pulmonology (3) DAVIS (obstructive sleep apnea): Status: Acute Problem details: Refer to pulmonology/sleep medicine. (4) Memory loss: Status: Acute Problem details: notes some forgetfulness and word-finding problems. [place] 15/30 on 04/15/2023 DS: Summary Hospital Course Hospital Course: 72-year-old male with pulmonary fibrosis admitted through the emergency department with worsening cough and dyspnea over the past 3-4 months. Initial presentation suggested more acute process but he indicates that this has been gradually getting worse though perhaps subacute worsening in the last few weeks. He was seen about 3 weeks ago in clinic where he was noted to have pulmonary fibrosis on imaging and was treated with prednisone, Levaquin, Combivent. He thinks he got a brief improvement with prednisone but otherwise overall does not feel better with that treatment. Previously had been getting pulmonology care through [facility] but has not been there for 3 years. Other than his dyspnea reports otherwise feeling well. He specifically denies discolored sputum, fever, upper respiratory illness symptoms. No chest pain or palpitations. No history of heart disease or thromboembolic disease. He has a remote history of smoking having quit some 25 years ago. During his hospital stay he was treated with oxygen and antibiotics. Other than hypoxia he did well. Today he is quite anxious to go home. After discussion of risks and benefits we decided that he could reasonably go home knowing that he might return if he got acutely worse. Will arrange for outpatient oxygen. His is been a part of this discussion. She also notes that he has some problems with word finding and gets confused. Today he had a [place] score of 15/30 indicating significant cognitive impairment. Recommendation for outpatient OT cognitive evaluation. Status at Discharge Functional status at discharge: independent ambulation Overall status at discharge: patient is progressing back to baseline Time Spent with Patient Time attestation: Total time spent providing and/or coordinating discharge services: Time spent: Greater than 30 minutes Exam Narrative: Exam Narrative: He is alert and appears in no distress breathing oxygen at 1 L per nasal cannula at rest. Gives his own history. He is oriented to his circumstances. Respirations with fine inspiratory crackles consistent with pulmonary fibrosis. Fair air exchange all lung cervantes. No consolidation. Cardiovascular: S1, S2, regular rate and rhythm. No murmur gallop or rub. Abdomen is soft without tenderness. Extremities without edema. Good peripheral pulses. Const: Vital Signs, click to edit/add: Vital Signs - 24 hr 04/14/23 12:01 04/14/23 12:02 04/14/23 12:15 Temperature Pulse Rate 98 100 98 Pulse Rate [Pulse Oximeter] Respiratory Rate Blood Pressure 144/88 H Blood Pressure [Le ft Arm] Pulse Oximetry 94 91 91 Oxygen Delivery Me thod Nasal Cannula Nasal Cannula Nasal Cannula Oxygen Flow Rate 3 3 3 Fraction of Inspir ed Oxygen 04/14/23 12:15 04/14/23 12:30 04/14/23 12:30 Temperature Pulse Rate 96 Pulse Rate [Pulse Oximeter] Respiratory Rate 45 H 35 H Blood Pressure Blood Pressure [Le ft Arm] Pulse Oximetry 89 Oxygen Delivery Me thod Nasal Cannula Oxygen Flow Rate 1 Fraction of Inspir ed Oxygen 04/14/23 12:32 04/14/23 12:33 04/14/23 12:35 Temperature Pulse Rate 91 91 Pulse Rate [Pulse Oximeter] Respiratory Rate Blood Pressure 138/85 Blood Pressure [Le ft Arm] Pulse Oximetry 89 89 Oxygen Delivery Me thod Nasal Cannula Nasal Cannula Nasal Cannula Oxygen Flow Rate 1 1 Fraction of Inspir ed Oxygen 0.24 04/14/23 12:45 04/14/23 12:45 04/14/23 13:00 Temperature Pulse Rate 93 89 Pulse Rate [Pulse Oximeter] Respiratory Rate 40 H Blood Pressure Blood Pressure [Le ft Arm] Pulse Oximetry 88 93 Oxygen Delivery Me thod Nasal Cannula Nasal Cannula Oxygen Flow Rate 1 3 Fraction of Inspir ed Oxygen 04/14/23 13:01 04/14/23 13:02 04/14/23 13:10 Temperature Pulse Rate 89 90 Pulse Rate [Pulse Oximeter] Respiratory Rate 40 H Blood Pressure 147/92 H Blood Pressure [Le ft Arm] Pulse Oximetry 93 92 Oxygen Delivery Me thod Nasal Cannula Nasal Cannula Oxygen Flow Rate 3 2 Fraction of Inspir ed Oxygen 04/14/23 13:31 04/14/23 13:33 04/14/23 13:45 Temperature Pulse Rate 107 H 99 90 Pulse Rate [Pulse Oximeter] Respiratory Rate Blood Pressure 147/82 H Blood Pressure [Le ft Arm] Pulse Oximetry 86 L 87 L 92 Oxygen Delivery Me thod Nasal Cannula Nasal Cannula Nasal Cannula Oxygen Flow Rate 2 4 4 Fraction of Inspir ed Oxygen 04/14/23 14:00 04/14/23 14:02 04/14/23 14:03 Temperature Pulse Rate 93 91 91 Pulse Rate [Pulse Oximeter] Respiratory Rate Blood Pressure 151/87 H Blood Pressure [Le ft Arm] Pulse Oximetry 90 90 90 Oxygen Delivery Me thod Nasal Cannula Nasal Cannula Nasal Cannula Oxygen Flow Rate 2 2 2 Fraction of Inspir ed Oxygen 04/14/23 14:07 04/14/23 14:18 04/14/23 14:30 Temperature Pulse Rate 115 H 92 Pulse Rate [Pulse Oximeter] Respiratory Rate 40 H Blood Pressure Blood Pressure [Le ft Arm] Pulse Oximetry 69 L 89 Oxygen Delivery Me thod Nasal Cannula Nasal Cannula Oxygen Flow Rate 4 2 Fraction of Inspir ed Oxygen 04/14/23 14:33 04/14/23 14:34 04/14/23 14:45 Temperature Pulse Rate 92 92 93 Pulse Rate [Pulse Oximeter] Respiratory Rate Blood Pressure 140/84 H Blood Pressure [Le ft Arm] Pulse Oximetry 90 89 91 Oxygen Delivery Me thod Nasal Cannula Nasal Cannula Nasal Cannula Oxygen Flow Rate 2 2 2 Fraction of Inspir ed Oxygen 04/14/23 15:00 04/14/23 15:01 04/14/23 15:02 Temperature Pulse Rate 91 85 Pulse Rate [Pulse Oximeter] Respiratory Rate 40 H Blood Pressure 150/93 H Blood Pressure [Le ft Arm] Pulse Oximetry 91 91 Oxygen Delivery Me thod Nasal Cannula Nasal Cannula Oxygen Flow Rate 2 2 Fraction of Inspir ed Oxygen 04/14/23 15:02 04/14/23 15:15 04/14/23 15:30 Temperature Pulse Rate 93 94 89 Pulse Rate [Pulse Oximeter] Respiratory Rate Blood Pressure Blood Pressure [Le ft Arm] Pulse Oximetry 92 89 88 Oxygen Delivery Me thod Nasal Cannula Nasal Cannula Nasal Cannula Oxygen Flow Rate 2 2 2 Fraction of Inspir ed Oxygen 04/14/23 15:32 04/14/23 15:45 04/14/23 16:11 Temperature Pulse Rate 91 94 Pulse Rate [Pulse Oximeter] Respiratory Rate 42 H Blood Pressure 173/108 H Blood Pressure [Le ft Arm] Pulse Oximetry 90 90 Oxygen Delivery Me thod Nasal Cannula Nasal Cannula Oxygen Flow Rate 2 2 Fraction of Inspir ed Oxygen 04/14/23 16:34 04/14/23 17:52 04/14/23 17:52 Temperature 99.1 F Pulse Rate 92 Pulse Rate [Pulse Oximeter] 89 Respiratory Rate 40 H 40 H Blood Pressure Blood Pressure [Le ft Arm] 151/89 H Pulse Oximetry 90 90 Oxygen Delivery Me thod Nasal Cannula Nasal Cannula Oxygen Flow Rate 2.5 2.5 Fraction of Inspir ed Oxygen 04/14/23 18:30 04/14/23 19:00 04/14/23 22:28 Temperature 98.0 F Pulse Rate Pulse Rate [Pulse Oximeter] 98 Respiratory Rate 26 H 26 H 32 H Blood Pressure Blood Pressure [Le ft Arm] 139/79 Pulse Oximetry 91 91 Oxygen Delivery Me thod OxyMask OxyMask Oxygen Flow Rate 2 2 Fraction of Inspir ed Oxygen 04/14/23 22:28 04/14/23 22:39 04/15/23 02:42 Temperature 98.2 F 98.2 F Pulse Rate 96 Pulse Rate [Pulse Oximeter] 96 84 Respiratory Rate 32 H 28 H Blood Pressure Blood Pressure [Le ft Arm] 153/86 H 114/68 Pulse Oximetry 95 92 Oxygen Delivery Me thod OxyMask OxyMask Oxygen Flow Rate 2.5 2 Fraction of Inspir ed Oxygen 0.24 04/15/23 07:00 04/15/23 07:00 04/15/23 07:00 Temperature 97.7 F Pulse Rate 86 Pulse Rate [Pulse Oximeter] 85 85 Respiratory Rate 22 22 Blood Pressure Blood Pressure [Le ft Arm] 121/71 Pulse Oximetry 93 Oxygen Delivery Me thod Nasal Cannula Oxygen Flow Rate 2 Fraction of Inspir ed Oxygen Documenting provider has reviewed patient's vital signs: yes DS: Data Data Completed and Pending Labs on day of discharge: Labs from last 24 hours 04/15/23 04/14/23 04/14/23 05:57 19:10 18:49 WBC 5.86 RBC 4.14 L Hgb 12.9 L Hct 38.1 MCV 92 MCH 31 MCHC 34 Plt Count 222 INR 1.17 H D-Dimer Quant (PE/DVT) ABG pH ABG pCO2 ABG pO2 ABG HCO3 ABG Total CO2 ABG O2 Saturation ABG Base Excess VBG pH 7.453 H VBG pCO2 40 VBG pO2 40.2 VBG HCO3 28 Carboxyhemoglobin Sodium 138 Potassium 3.8 Chloride 101 Carbon Dioxide 28 Anion Gap 9 BUN 21 Creatinine 1.0 Estimated Creat Clear 62.70 Estimated GFR 79 Glucose 115 Lactate 1.0 Calcium 9.1 Ionized Calcium Nikki 1.10 L Magnesium 1.6 Total Bilirubin 1.2 AST 58 H ALT 46 Alkaline Phosphatase 93 Troponin I 0.04 C-Reactive Protein 9.0 H NT-Pro-B Natriuret Pep 1300 Total Protein 7.5 Albumin 3.9 Procalcitonin 0.12 TSH 4.120 SARS-CoV-2 (PCR) Influenza Type A (PCR) Influenza Type B (PCR) Ur L.pneumophila Ag Pending RSV (PCR) Ur Strep pneumoniae Ag Pending Lab Acknowledgement Test Added POC Troponin I 04/14/23 04/14/23 04/14/23 14:04 13:05 12:20 WBC RBC Hgb Hct MCV MCH MCHC Plt Count INR D-Dimer Quant (PE/DVT) ABG pH 7.45 ABG pCO2 32 L ABG pO2 59.8 L ABG HCO3 22 ABG Total CO2 20 L ABG O2 Saturation 92 ABG Base Excess -1.6 VBG pH VBG pCO2 VBG pO2 VBG HCO3 Carboxyhemoglobin 2.4 Sodium Potassium Chloride Carbon Dioxide Anion Gap BUN Creatinine Estimated Creat Clear Estimated GFR Glucose Lactate Calcium Ionized Calcium Nikki Magnesium Total Bilirubin AST ALT Alkaline Phosphatase Troponin I 0.06 H* C-Reactive Protein NT-Pro-B Natriuret Pep Total Protein Albumin Procalcitonin TSH SARS-CoV-2 (PCR) Negative SARS-CoV-2 Influenza Type A (PCR) Negative PCR FLU A Influenza Type B (PCR) Negative PCR FLU B Ur L.pneumophila Ag RSV (PCR) Negative PCR RSV Ur Strep pneumoniae Ag Lab Acknowledgement POC Troponin I 0.06 H 04/14/23 11:30 WBC RBC Hgb Hct MCV MCH MCHC Plt Count INR D-Dimer Quant (PE/DVT) 1.74 H ABG pH ABG pCO2 ABG pO2 ABG HCO3 ABG Total CO2 ABG O2 Saturation ABG Base Excess VBG pH VBG pCO2 VBG pO2 VBG HCO3 Carboxyhemoglobin Sodium 142 Potassium 4.3 Chloride 107 Carbon Dioxide 24 Anion Gap 11 BUN 14 Creatinine 0.7 Estimated Creat Clear 62.70 Estimated GFR 97 Glucose 152 H Lactate Calcium 9.9 Ionized Calcium Nikki Magnesium Total Bilirubin AST ALT Alkaline Phosphatase Troponin I 0.05 H C-Reactive Protein 7.9 H NT-Pro-B Natriuret Pep 1230 Total Protein Albumin Procalcitonin 0.07 TSH SARS-CoV-2 (PCR) Influenza Type A (PCR) Influenza Type B (PCR) Ur L.pneumophila Ag RSV (PCR) Ur Strep pneumoniae Ag Lab Acknowledgement POC Troponin I 0.[address] scan - chest: Radiologist's impression: INDICATION: Elevated D-dimer. Clinical signs and symptoms of an acute pulmonary embolus. COMPARISON: A noncontrast examination dated April 04, 2023 TECHNIQUE: : CT examination of the chest was performed with the uneventful intravenous administration of 95 cc of his severe 3 set while thin axial sections were obtained from above the apices of the lungs to the lung bases. Please note that all CT scans at this facility use dose modulation, iterative reconstruction, and/or weight-based dosing when appropriate to reduce radiation dose to as low as reasonably achievable. FINDINGS: : HEART and MEDIASTINUM: The heart is enlarged. There is no pericardial effusion. Mildly prominent mediastinal lymph nodes likely reactive. Atherosclerotic vascular calcifications and valvular calcifications. Enlarged pulmonary arteries probably due to pulmonary hypertension PULMONARY ARTERIAL CIRCULATION: Somewhat limited by motion but no indication of acute pulmonary embolus. LUNGS: Compared to the prior study, the lungs again show a background of significant interstitial fibrosis. This has a peripheral and basilar predominance and presents with abnormal reticular opacities and areas of traction bronchiectasis and bronchiolectasis. There is early honeycombing at the posterior bases. 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 A new finding since the prior examination is diffuse multifocal ground-glass. This is most likely due to an atypical inflammatory process or edema. Correlate clinically. PLEURAL SPACES: There is no pleural effusion, pneumothorax or pleural based mass. VISUALIZED UPPER ABDOMEN: Indeterminate hepatic lesion in the left lobe for which follow-up is recommended in the nonacute care setting. OSSEOUS STRUCTURES: Age-appropriate appearance. No acute fracture or destructive process. TUBES and LINES: None. IMPRESSION: 1. Somewhat limited by motion but there is no indication of acute pulmonary embolus. 2. Enlarged heart. Prominent mediastinal lymph nodes likely reactive. Enlarged central pulmonary arteries likely due to pulmonary hypertension. 3. Background of significant interstitial fibrosis as described above and was also present on April 04, 2023. 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 4. There is a new finding of significant diffuse patchy multifocal ground-glass opacification. The 2 most likely diagnoses are an atypical inflammatory process or edema. Correlate clinically. Normal pleural spaces. 5. Again noted is a small indeterminate lesion in the left lobe of the liver. This would best be evaluated by a contrast-enhanced CT or MRI. Discharge Plan Discharge Disposition: Home, Self-Care Date of Admission: 04/14/23 17:52 Attending Provider on Discharge: Chidi Mitchell Primary Care Provider: Ad Heath Condition: Stable Anticipated Discharge Date/Time: 04/15/23 11:49 Discharge Medications: New azithromycin 500 mg tablet 500 mg PO DAILY 3 Days Qty: 3 0RF amoxicillin-pot clavulanate 875-125 mg tablet 1 tab PO BID Qty: 10 0RF Continued ibuprofen 200 mg capsule 600 mg PO Q6H PRN Combivent Respimat 20-100 mcg/actuation mist 1 puff inhalation QID Qty: 4 1RF Rx Instructions: space evenly during waking hours Discharge Orders: Discharge Order (Routine); Ordered 04/15/23 Ordered By: Chidi Mitchell Additional Instructions: Use oxygen as prescribed. See your doctor this next week to review your breathing problems. Talk to your doctor about further evaluation of cognitive impairment with occupational therapy and neurology. Activity Level: Activity as Tolerated and Other Discharge Diet: Regular and Other Follow Up Appointments: Ad Heath MD [Primary Care Provider] - (5 days) Forms: [employer] Info Instructions
--- NOTE | 2023-04-15 15:26 | PC.NURSE ---
Pt friendly and cooperative, although forgetful with teachings and needs frequent reorientation to the importance of supplemental O2 pertaining to his disease process. Multiple verbal/written teachings with pt and his today regarding supplemental O2, physical activity, pursed lip breathing, follow ups, medications and POC. He ambulated around unit this afternoon with PT and was reported to maintain SpO2 on 4L/O2 for about 75-100ft before beginning to desaturate into the 80's. Therapy had pt sit to rest and he continued to desat to 77% before beginning to rebound. Stalin RT in to speak with pt and his about home O2. Pt and his verbalized understanding of discharge instructions and follow up appointments and he was discharged to home via wheelchair at 1450.
[2023-04-16 15:01] LABS: Strep pneumoniae Ag, Urine Negative (Negative)
== END 2023-04-15 15:32 | disposition home or self-care (01) | DRG 189 ==
LOC: ED 15:54 → MEDSURG 16:39
PROVIDERS: Admitting Provider Family Medicine; Emergency Provider Internal Medicine; PCP Family Medicine; Visit Provider Family Medicine
DX: J96.01 Acute respiratory failure with hypoxia (principal); J84.10 Pulmonary fibrosis, unspecified; G47.33 Obstructive sleep apnea (adult) (pediatric); R41.3 Other amnesia; Z87.891 Personal history of nicotine dependence
CPT/HCPCS: 36415; 36600; 71275; 80048; 80053; 82330; 82803; 83605; 83735; 83880; 84145; 84443; 84484; 85025; 85027; 85379; 85610; 86140; 87070; 87252; 87276; 87449; 87631; 87899; 93005; 93306; 94761; 97116; 97162; 97166; 97535; 99283; 99285; 99291; A9270; J0456; J1940; J2543; J7050; Q9967

== ENCOUNTER 2023-04-21 11:45 | Outpatient (CLI) | payer MEDICARE, SELFPAY | END 2023-04-21 11:46 | disposition home or self-care (01) | PROVIDERS: PCP Family Medicine; Visit Provider Family Medicine | DX: E78.5 Hyperlipidemia, unspecified (principal); I50.9 Heart failure, unspecified; J84.10 Pulmonary fibrosis, unspecified; J96.91 Respiratory failure, unspecified with hypoxia | CPT/HCPCS: 83880; 86140 ==